=== PATIENT | male | born 1980 | race Caucasian/White ===

== ENCOUNTER 2016-05-30 09:00 | Day surgery (SDC) ==
[2016-05-30] MEDS ORDERED: LR 1,000 ML ONE ×2 (09:20→11:54)
[2016-05-30] MEDS ORDERED: KEFZOL 2 GM/D5W 50 ML ONE (09:20)
[2016-05-30] MEDS ORDERED: PEPCID ONE (09:20)
[2016-05-30] MEDS ORDERED: REGLAN ONE (09:20)
[2016-05-30] MEDS ORDERED: NAROPIN 0.5% ONE (09:38)
[2016-05-30] MEDS ORDERED: VERSED ONE ×2 (09:39→09:58)
[2016-05-30] MEDS ORDERED: TORADOL ONE (11:53)
[2016-05-30] MEDS ORDERED: ZOFRAN ONE (11:53)
[2016-05-30] MEDS ORDERED: XYLOCAINE-MPF 2% ONE (11:53)
[2016-05-30] MEDS ORDERED: QUELICIN (DOSE) ONE (11:53)
[2016-05-30] MEDS ORDERED: DECADRON ONE (11:54)
--- NOTE | 2016-05-30 11:58 | OPERATIVE NOTE ---
PROCEDURE DATE: 05/30/2016 PREOPERATIVE DIAGNOSIS: AC joint pain with impingement left shoulder. POSTOPERATIVE DIAGNOSIS: AC joint pain with impingement left shoulder. PROCEDURE: Arthroscopic distal clavicle resection and acromioplasty. SURGEON: Terrence Banda MD. SPECIAL EFFECTS SPECIALIST: Meir Zavala. ANESTHESIA: General. COMPLICATION: None. PROCEDURE IN DETAIL: This 36-year-old male presents for arthroscopic evaluation of the left shoulder. Risks, benefits, and no guarantees were discussed, and the patient is willing to proceed. He was taken to the operating room and satisfactory anesthesia obtained. The left shoulder was prepped and draped in usual sterile fashion. A time-out was taken to confirm operative site, procedure, and patient. He was placed in lateral position, neutral alignment maintained of the spine and all bony prominences padded. After ensuring time-out and proper prep and drape, the left shoulder was placed in 12 pounds of longitudinal traction and 30 degrees of abduction and 30 degrees of forward elevation. A posterior portal was established in the glenohumeral joint and the arthroscope introduced. No undersurface rotator cuff tear or labral tears were noted. The biceps tendon was fully intact. Articular surfaces were relatively intact without any significant chondromalacia. There was a slight drive-through sign but no evidence of instability. With the normal intra-articular sign the scope was repositioned in the subacromial space and a bursectomy performed through an accessory lateral portal. The scope was changed to the lateral portal and the shaver posteriorly, and the cutting block technique was utilized to convert the type 2 acromion to a type 1 flat acromion. An anterior AC portal was then established and the shaver used to resect the distal clavicle for roughly 5-7 mm. Afterwards, the bursal surface of the rotator cuff was inspected and noted to be fully intact. The instruments were removed and the portals closed with 3-0 nylon and infiltrated with Marcaine for pain control. Sterile dressings were applied and he was recovered from anesthesia and transferred to the recovery room in stable condition. No intraoperative complications were noted. Instrument count and sponge count was correct at the time of closure.
[2016-05-30] MEDS ORDERED: DIPRIVAN 1% ONE (12:11)
[2016-05-30 13:09] VITALS: BP 123/95
== END 2016-05-30 12:50 | disposition home or self-care (01) ==
LOC: OPS 09:00
PROVIDERS: ATTEND Orthopaedic Surgery Adult Reconstructive Orthopaedic Surgery
DX: M25.812 Other specified joint disorders, left shoulder (principal); I10 Essential (primary) hypertension; E78.00 Pure hypercholesterolemia, unspecified; Z87.891 Personal history of nicotine dependence
CPT/HCPCS: J0330; J0690; J1100; J1885; J2250; J2405; J2795; J7120